=== PATIENT | male | born 1990 | race Two or more races ===

== ENCOUNTER 2021-07-25 20:35 | Emergency (ER) | payer MEDICAID ==
[~2021-07-25] VITALS: Ht 177.8 cm; Wt 81.6 kg
[2021-07-26 00:41] LABS: Hematocrit 41.1 % (41.0-53.0); Hemoglobin 13.6 g/dL (13.5-17.5); Mean Corpuscular Hemoglobin 28.9 pg (28.0-32.0); Mean Corpuscular Hgb Conc. 33.2 g/dL (32.0-36.0); Mean Corpuscular Volume 87.1 fL (80.0-100.0); Red Blood Cells 4.72 10^6/uL (4.5-5.90); Red Cell Distribution Width 15.4 % (11.8-14.3)
[2021-07-26 01:03] LABS: Albumin 2.5 g/dL (3.4-5.0); Calcium 8.2 mg/dL (8.5-10.1); Carbon Dioxide 28 mmol/L (21-32); Glucose 92 mg/dL (74-106); Magnesium 1.8 mg/dL (1.6-2.6)
[2021-07-26 01:05] LABS: Basophils % (manual) 0 (0.0-2.0); Blast Cells 0; Eosinophils % (manual) 0 (0-7); Metamyelocytes % 0; Promyelocytes % 0; Reactive Lymphocytes 0
[2021-07-26 01:06] LABS: Lactic Acid w/Reflex 2.1 mmol/L (0.4-2.0)
[2021-07-26 01:11] LABS: Alkaline Phosphatase 89 U/L (45-117); Anion Gap 6 (5-15); Aspartate Aminotransferase 26 U/L (15-37); BUN/Creatinine Ratio 18.3; Blood Urea Nitrogen 30 mg/dL (7-18); Chloride 101 mmol/L (98-107); GFR African American 63 mL/min; GFR Non-African American 52 mL/min; Potassium 4.2 mmol/L (3.5-5.1); Sodium 135 mmol/L (136-145)
[2021-07-26 01:18] LABS: Alanine Aminotransferase 23 U/L (16-61); Bilirubin, Total 0.8 mg/dL (0.2-1.0)
[2021-07-26 01:27] LABS: CRP High Sensitivity > 19.0 mg/dL (< 0.3)
[2021-07-26 01:38] LABS: Myelocytes % 2
[2021-07-26 01:39] LABS: Band Neutrophils % (manual) 50; Lymphocytes % (manual) 7 (10.0-50.0); Monocytes % (manual) 4 (0-12)
[2021-07-26] MEDS ORDERED: PIPERACILLIN-TAZOB 3.375GM 100 ML IV ONE (02:15)
[2021-07-26] MEDS ORDERED: SODIUM CHLORIDE 0.9% 2,000 ML IV ONE (02:15)
[2021-07-26] MEDS ORDERED: PROMETHAZINE W/CODEINE 5 ML ORAL SYRUP PO ONE (05:15)
[2021-07-26 07:16] LABS: Urine Bacteria NONE SEEN /hpf (None Seen); Urine Blood Negative /uL (Negative); Urine Specific Gravity 1.021 (1.001-1.035); Urine WBC 7 /hpf (0 - 3)
[2021-07-26 11:24] VITALS: BP 101/63
== END 2021-07-26 13:04 | disposition short-term general hospital (02) ==
LOC: ER 20:35
DX: J96.01 Acute respiratory failure with hypoxia (principal); J18.9 Pneumonia, unspecified organism; F17.210 Nicotine dependence, cigarettes, uncomplicated; Z88.1 Allergy status to other antibiotic agents; Z20.822 Contact with and (suspected) exposure to COVID-19
CPT/HCPCS: 36415; 36600; 71045; 80053; 81001; 82728; 82805; 83605; 83615; 83735; 83880; 84484; 85007; 85027; 85379; 86141; 87040; 87426; 93005; 96365; 96366; 99285; C9803; J2543; J7030; U0003

== ENCOUNTER 2024-04-13 03:11 | Emergency (ER) | payer MEDICAID ==
[~2024-04-13] VITALS: Ht 175.3 cm; Wt 83.8 kg
[2024-04-13 03:23] VITALS: BP 138/102; PULSE 67; RESP 19; TEMP 98.2; O2SAT 98
[2024-04-13] MEDS ORDERED: IBUP-1456 PO (05:07)
[2024-04-13] MEDS ORDERED: CEPH500C PO (05:07)
[2024-04-13] MEDS ORDERED: CLIN1CAP70 PO (05:07)
[2024-04-13] MEDS: cefTRIAXone 1GM/50ML D5W 50 ML IV ONE (05:09)
[2024-04-13] MEDS: CLINDAMYCIN 900MG IV 50 ML IV ONE (05:42)
[2024-04-13] MEDS: KETOROLAC TROMETH 30 MG/ML 1ML VIAL IV ONE (05:42)
== END 2024-04-13 06:20 | disposition home or self-care (01) ==
LOC: ER 03:11
DX: L03.113 Cellulitis of right upper limb (principal); F17.210 Nicotine dependence, cigarettes, uncomplicated; Z98.890 Other specified postprocedural states; Z79.899 Other long term (current) drug therapy
CPT/HCPCS: 73130; 96365; 96367; 96375; 99284; J0696; J1885; J3490